=== PATIENT | male | born 1980 | race American Indian/Alaskan Native ===

== ENCOUNTER 2022-06-17 02:58 | Emergency (ER) | payer SELFPAY ==
[2022-06-17] MEDS ORDERED: MORPHINE 4 MG/1 ML INJ IM ONE (08:09)
[2022-06-17] MEDS ORDERED: KETOROLAC 10 MG TAB PO ONE (08:09)
[2022-06-17] MEDS ORDERED: ONDANSETRON 4 MG ODT TAB PO ONE (08:09)
[2022-06-17] MEDS ORDERED: dexAMETHasone 4 MG/ML VIAL IM ONE (08:10)
[2022-06-17] MEDS ORDERED: CYCLOBENZAPRINE 10 MG TAB PO ONE (08:11)
--- NOTE | 2022-06-17 09:52 | Emergency Department Report ---
ED Back Pain/Injury HPI - General Chief Complaint: Back Pain/Injury Stated Complaint: FULL BODY PAIN Time Seen by Provider: 06/17/22 07:09 Source: patient, EMS Limitations: No Limitations - History of Present Illness Initial Comments: 41-year-old black male with no past medical history resents to the emergency department for evaluation of 3-week history of right lower back pain that radiates down his leg. He states that over the past few days he has had 4 hospital visits without any improvement in pain. He denies injury or trauma but states that he was working out very strenuously prior to the pain starting. He denies urinary symptoms, saddle anesthesia, fever, abdominal pain. He states that he is scheduled for an MRI today. MD Complaint: back pain -: Gradual, week(s) (3) Similar Symptoms Previously: Yes Place: home Radiation: right leg Severity: severe Severity scale (0 -10): 10 Quality: aching Consistency: constant Worsens With: movement Associated Symptoms: denies: confusion, weakness, numbness, difficulty urinating, diaphoresis, incontinence, fever/chills, abdominal pain, nausea/v omiting, shortness of breath - Related Data Previous Rx's Medication Instructions Recorded Last Taken Type Thiamine [Vitamin B-1] 100 mg PO QDAY #30 tablet 03/03/15 Unknown Rx oxyCODONE /ACETAMINOPHEN [Percocet 1 tab PO Q4H PRN #30 tablet 03/03/15 Unknown Rx 5/325 mg] Acetaminophen/Codeine [Tylenol 1 tab PO Q6H PRN #12 tab 06/17/22 Unknown Rx /Codeine # 3 tab] Ketorolac [Toradol] 10 mg PO Q6H PRN #12 tab 06/17/22 Unknown Rx Lidocaine [Lidoderm] 1 each TP DAILY PRN #10 patch 06/17/22 Unknown Rx methOCARBAMOL [Robaxin TAB] 750 mg PO Q8H PRN #30 tab 06/17/22 Unknown Rx methylPREDNISolone [Medrol 4MG 4 mg PO DAILY #1 pack 06/17/22 Unknown Rx DOSEPAK (21 tabs)] Allergies Allergy/AdvReac Type Severity Reaction Status Date / Time No Known Allergies Allergy Verified 02/28/15 09:53 ED Review of Systems ROS: Stated complaint: FULL BODY PAIN Other details as noted in HPI Comment: All other systems reviewed and negative Constitutional: denies: chills, fever ENT: denies: congestion Respiratory: denies: shortness of breath Cardiovascular: denies: chest pain, palpitations Gastrointestinal: denies: abdominal pain, nausea, vomiting Musculoskeletal: back pain Neurological: denies: weakness ED Past Medical Hx - Past Medical History Hx Congestive Heart Failure: No Hx Diabetes: No Hx Asthma: No Hx COPD: No Additional medical history: Pancreatitis - Social History Smoking Status: Never Smoker Substance Use Type: Alcohol - Medications Home Medications: Home Medications Medication Instructions Recorded Confirmed Last Taken Type Thiamine [Vitamin B-1] 100 mg PO QDAY #30 tablet 03/03/15 Unknown Rx oxyCODONE /ACETAMINOPHEN [Percocet 1 tab PO Q4H PRN #30 tablet 03/03/15 Unknown Rx 5/325 mg] Acetaminophen/Codeine [Tylenol 1 tab PO Q6H PRN #12 tab 06/17/22 Unknown Rx /Codeine # 3 tab] Ketorolac [Toradol] 10 mg PO Q6H PRN #12 tab 06/17/22 Unknown Rx Lidocaine [Lidoderm] 1 each TP DAILY PRN #10 patch 06/17/22 Unknown Rx methOCARBAMOL [Robaxin TAB] 750 mg PO Q8H PRN #30 tab 06/17/22 Unknown Rx methylPREDNISolone [Medrol 4MG 4 mg PO DAILY #1 pack 06/17/22 Unknown Rx DOSEPAK (21 tabs)] ED Physical Exam - General Limitations: No Limitations General appearance: alert, in no apparent distress - Head Head exam: Present: atraumatic, normocephalic - Eye Eye exam: Present: normal appearance. Absent: conjunctival injection - Neck Neck exam: Present: normal inspection. Absent: tenderness - Respiratory Respiratory exam: Absent: respiratory distress - Cardiovascular Cardiovascular Exam: Present: regular rate - GI/Abdominal GI/Abdominal exam: Present: soft, normal bowel sounds. Absent: distended, tenderness, guarding, rebound, rigid - Extremities Exam Extremities exam: Present: normal inspection, full ROM, tenderness (Entire right leg), normal capillary refill. Absent: pedal edema, joint swelling, calf tenderness - Expanded Lower Extremity Exam Right Hip exam: Present: tenderness Upper Leg exam: Present: normal inspection Knee exam: Present: normal inspection Lower Leg exam: Present: normal inspection Ankle exam: Present: normal inspection Foot/Toe exam: Present: normal inspection Neuro vascular tendon exam: Present: no vascular compromise. Absent: pulse deficit, abnormal cap refill, extremity cold to touch, pallor Gait: Positive: observed and limited by pain - Back Exam Back exam: Present: normal inspection, tenderness (Right lower). Absent: CVA tenderness (R), CVA tenderness (L), vertebral tenderness - Expanded Back Exam Expanded Back exam: Absent: saddle anesthesia Back exam: Positive Straight Leg Raise: Right - Neurological Exam Neurological exam: Present: alert, oriented X3, CN II-XII intact, reflexes normal. Absent: motor sensory deficit - Psychiatric Psychiatric exam: Present: normal affect, normal mood - Skin Skin exam: Present: warm, dry, intact, normal color ED Course Vital Signs 06/17/22 06/17/22 03:03 10:55 Temperature 98.1 F 98.0 F Pulse Rate 98 H 90 Respiratory 16 20 Rate Blood Pressure 134/82 138/74 [Right] O2 Sat by Pulse 99 100 Oximetry ED Medical Decision Making - Medical Decision Making 41-year-old black male with no past medical history resents to the emergency department for evaluation of 3-week history of right lower back pain that radiates down his leg. He states that over the past few days he has had 4 hospital visits without any improvement in pain. He denies injury or trauma but states that he was working out very strenuously prior to the pain starting. He denies urinary symptoms, saddle anesthesia, fever, abdominal pain. He states that he is scheduled for an MRI today. Pain only minimally improved. Patient be discharged home with Medrol Dosepak, Toradol, Robaxin, Lidoderm patches, and Tylenol 3 to use as directed. He is advised to follow-up with his orthopedic as planned and return to the emergency department as needed. He verbalizes understanding of and agreement with plan of care. Critical care attestation.: If time is entered above; I have spent that time in minutes in the direct care of this critically ill patient, excluding procedure time. ED Disposition Clinical Impression: Back pain Qualifiers: Back pain location: low back pain Chronicity: acute Sciatica presence: with sciatica Sciatica laterality: sciatica of left side Disposition: HOME / SELF CARE / HOMELESS Is pt being admited?: No Does the pt Need Aspirin: No Condition: Stable Instructions: Radicular Pain, Acute Back Pain, Adult, Sciatica, [id number], Sciatica Rehab-SportsMed Additional Instructions: Take medications as directed. Follow-up with orthopedics for further evaluation and management. Return to the emergency department as needed Prescriptions: Lidocaine [Lidoderm] 1 each TP DAILY PRN #10 patch PRN Reason: Pain, Moderate (4-6) methylPREDNISolone [Medrol 4MG DOSEPAK (21 tabs)] 4 mg PO DAILY #1 pack methOCARBAMOL [Robaxin TAB] 750 mg PO Q8H PRN #30 tab PRN Reason: Pain, Moderate (4-6) Ketorolac [Toradol] 10 mg PO Q6H PRN #12 tab PRN Reason: Pain Acetaminophen/Codeine [Tylenol /Codeine # 3 tab] 1 tab PO Q6H PRN #12 tab PRN Reason: Pain , Severe (7-10) Referrals: SHANELL VAZ MD [Staff Physician] - 3-5 Days CARRIE DIAS MD [Staff Physician] - 3-5 Days Forms: Work/School Release Form(ED) Time of Disposition: 09:52
[2022-06-17] MEDS ORDERED: LIDOCAINE 5% 1 EACH PATCH TD SCH (10:00)
[2022-06-17 10:57] VITALS: BP 138/74
== END 2022-06-17 10:54 | disposition home or self-care (01) ==
LOC: ED 02:58
DX: M54.50 Low back pain, unspecified (principal); Z72.89 Other problems related to lifestyle; Z79.899 Other long term (current) drug therapy
CPT/HCPCS: 96372; 99283; J1100; J2270; J3490; Q0162